=== PATIENT | female | born 1960 | race Caucasian/White ===

== ENCOUNTER → 2018-03-19 | Outpatient (CLI) | payer BC ==
[~2018-03-19] MED LIST: BUPR150ER; BUPR150ER PO; ESOM20; FLUT.05NI; HYDCHL25 PO; LEVSOD75 PO; Prinivil10 MG PO; QVAR7.3 G1 IH
== END | disposition home or self-care (01) ==
LOC: LAB SHORT 11:23 → LAB 11:23
PROVIDERS: Nurse Practitioner
DX: Z01.419 Encounter for gynecological examination (general) (routine) without abnormal findings (principal)
CPT/HCPCS: G0145

== ENCOUNTER → 2018-05-17 | Outpatient (CLI) | payer BC | LOC: EDSTATUS 10:39 → PLD 12:59 → LAB SHORT 12:59 | DX: N95.0 Postmenopausal bleeding (principal) | CPT/HCPCS: 88305 ==

== ENCOUNTER 2018-07-05 11:55 | Day surgery (SDC) | payer BC ==
[~2018-07-05] VITALS: Ht 160 cm; Wt 93.3 kg
[2018-07-05] MEDS ORDERED: IBUP400 (12:29)
[2018-07-05] MEDS ORDERED: Aspir 8181 MG (12:29)
== END 2018-07-05 14:20 | disposition home or self-care (01) ==
LOC: ORSCSDS 11:55
PROVIDERS: Obstetrics & Gynecology
PROC: 0UDB8ZX Extraction of Endometrium, Via Natural or Artificial Opening Endoscopic, Diagnostic (ICD-10-PCS; principal; 2018-07-05 13:00)
DX: N84.0 Polyp of corpus uteri (principal); N95.0 Postmenopausal bleeding; E03.9 Hypothyroidism, unspecified; I10 Essential (primary) hypertension; G47.33 Obstructive sleep apnea (adult) (pediatric); F32.9 Major depressive disorder, single episode, unspecified; J45.909 Unspecified asthma, uncomplicated; K21.9 Gastro-esophageal reflux disease without esophagitis; Z79.82 Long term (current) use of aspirin; Z79.899 Other long term (current) drug therapy
CPT/HCPCS: 88305; J1100; J2250; J2405; J3010; J7120

== ENCOUNTER 2023-04-25 09:38 | Day surgery (SDC) | payer OTHER ==
[~2023-04-25] VITALS: Ht 157.5 cm; Wt 106.3 kg
[2023-04-25] VITALS (11 sets, daily range): BP systolic 94–120; BP diastolic 58–70
[~2023-04-25 09:38] MED LIST changes: +Aspir 8181 MG PO; +CALCIUM PO; +Hair, Skin & N1 EACH PO; +IBUP400; +TYLENOL325 MG; +[UNRECOGNIZED DRUG - OTHER] PO
--- NOTE | 2023-04-25 11:36 | NUR ---
Ambulatory in Day Surgery Surgical site prepped with 2% Chlorhexidine cloth wipe. Sathish Paws warming gown applied. History, Chart, Medications and Allergies reviewed before start of procedure.Lungs clear T/O to Auscultation. Patient confirms NPO status and agrees with scheduled surgery. Pre-Op teaching done. Pt verbalizes understanding. Patient States Post-Procedure ride home has been arranged. Patient reports completing Chlorhexadine shower X2 prior to admission to hospital.
--- NOTE | 2023-04-25 15:11 | NUR ---
PT ARRIVED TO THE ROOM AT 1500. PAIN MANAGED AT TIME OF ARRIVAL. PT HAD SPINAL ANESTHESIA AND REPORTS PAIN IS MANAGED. MIMINAL MOVEMENT OF BLE. DRESSING C/D/I TO THE R KNEE. FAMILY AT BEDSIDE FOR SUPPORT.
--- NOTE | 2023-04-25 18:29 | NUR ---
DECREASED RENAL FUNCTION REVIEWED RENAL FUNCTION SINCE TORADOL WAS ORDERED FOR PATIENT. LAST RENAL FUCTION AVALIABLE IN [facility] WAS IN 2019, CREATININE WAS 1.02 AND LAST GFT WAS 56. PT REPORTS SHE HAS HAD LABS DRAWN SINCE IN 2021, RESULTS NOT AVALIABLE FOR THIS RN TO SEE AND PT UNSURE OF RESULTS. PT REPORTS HISTORY OF EARLY RENAL FUNCTION ISSUES AND STATES SHE HAS BEEN TOLD BY HER PCP TO AVOID NSAIDS. JEFF FUENTES NOTIFIED AND DECISION MADE TO DC TORADOL. 1800 TORADOL DOSE WAS HELD AND IT WAS DC'D FROM THE [facility]. PT PROVIDED WITH EDUCATION.
--- NOTE | 2023-04-25 19:24 | NUR ---
SHIFT SUMMARY PT IS POD#0 FROM [address] TKA WITH DR. LOZA. PAIN MANAGED WITH TYLENOL. PT AMBULATED X1. PT HAS VOIDED. SHE IS TOLERATING PO. REPORT GIVEN TO GALE BLAS.
[2023-04-26 00:12] VITALS: BP 95/60
[2023-04-26 03:54] VITALS: BP 125/64
[2023-04-26 04:17] LABS: BASOPHILS ABSOLUTE AUTO 0.02 K/mm3 (0.00-0.23); BASOPHILS PERCENT AUTO 0 % (0-2); EOSINOPHILS ABSOLUTE AUTO 0.02 K/mm3 (0.00-0.68); EOSINOPHILS PERCENT AUTO 0 % (0-6); Hematocrit 36.6 % (33.0-51.0); Hemoglobin 11.9 g/dL (11.5-16.0); IMMATURE GRAN ABSOLUTE AUTO 0.03 K/mm3 (0.00-0.10); IMMATURE GRAN PERCENT AUTO 0 % (0-1); LYMPHOCYTES ABSOLUTE AUTO 0.82 K/mm3 (0.84-5.20); LYMPHOCYTES PERCENT AUTO 9 % (21-46); MONOCYTES ABSOLUTE AUTO 0.55 K/mm3 (0.16-1.47); MONOCYTES PERCENT AUTO 6 % (4-13); Mean Corpuscular HGB 28.8 pg (26.0-34.0); Mean Corpuscular HGB Conc 32.5 g/dL (31.5-36.5); Mean Corpuscular Volume 89 fL (80-100); NEUTROPHILS ABSOLUTE AUTO 8.05 K/mm3 (1.96-9.15); NEUTROPHILS PERCENT AUTO 85 % (41-73); Platelet Count 240 K/mm3 (150-400); RDW Coefficient Variation 14.7 % (11.7-14.2); RDW Standard Deviation 47.2 fL (35.1-46.3); Red Blood Cell Count 4.13 M/mm3 (3.80-5.20); White Blood Cell Count 9.49 K/mm3 (4.00-11.30)
[2023-04-26 04:48] LABS: Bun/Creatinine Ratio 22.9 (12.0-20.0); Calcium, Blood 8.8 mg/dL (8.5-10.1); Creatinine, Blood 0.96 mg/dL (0.40-1.00); Potassium, Blood 4.1 mmol/L (3.5-5.5)
--- NOTE | 2023-04-26 04:57 | NUR ---
SHIFT SUMMARY POD1 RTKA. SENSATION AND CIRCULATION REMAINS INTACT IN RLE. DRESSING IS C/D/I. VSS, HR BRADYCARDIC BUT PT REMAINS ASYMPTOMATIC. TOLLERATING PO INTAKE W/O N/V, AMBUALATING WITH SBA W/ FWW GT BELT, VOIDING W/O DIFFICULTY. PT SLEPT WITH HOME CPAP. MEDICATED FOR PAIN WITH SCHEDULED AND PRN. NO ACUTE EVENTS NOTED T/O THE NIGHT. PLAN FOR PT TO WORK WITH PT AND D/C HOME TODAY. THE PATIENT IS CURRENTLY RESTING, IN NO DISTRESS, CALL LIGHT IN REACH
[2023-04-26 08:02] VITALS: BP 114/74
[2023-04-26] MEDS ORDERED: Percocet 5-3251 EACH PO (09:12)
[2023-04-26] MEDS ORDERED: ELIQUIS2.5 MG PO (09:13)
--- NOTE | 2023-04-26 10:10 | NUR ---
DISCHARGE PT HAS CLEARED THERAPY. PAIN WELL CONTROLLED PER [facility]. AQUACEL OVER INCISION, C/D/I. EATING, DRINKING, & VOIDING WELL. DISCUSSED DISCHARGE INSTRUCTIONS WITH PATIENT. DRESSINGS, DISCHARGE INSTRUCTIONS, RX'S & POLAR PACK SENT WITH PATIENT. ESCORTED OUT VIA W/C.
== END 2023-04-26 10:15 | disposition home or self-care (01) ==
LOC: ORSCMMR 09:38 → ORD 10:00 → ORSCMMR 11:00 → ORD 11:00 → SURS 15:11 → ORSCMMR 04-26 10:15
PROVIDERS: Orthopaedic Surgery
PROC: 0SRC0JA Replacement of Right Knee Joint with Synthetic Substitute, Uncemented, Open Approach (ICD-10-PCS; principal; 2023-04-25 11:00)
DX: M17.11 Unilateral primary osteoarthritis, right knee (principal); I10 Essential (primary) hypertension; E03.9 Hypothyroidism, unspecified; E66.01 Morbid (severe) obesity due to excess calories; Z68.41 Body mass index [BMI] 40.0-44.9, adult; J45.909 Unspecified asthma, uncomplicated; G47.33 Obstructive sleep apnea (adult) (pediatric); Z79.899 Other long term (current) drug therapy; Z79.82 Long term (current) use of aspirin
CPT/HCPCS: 36415; 73560-RT; 80048; 85025; 97110; 97116; 97161; 97530; A9270; C1776; J0171; J0690; J0735; J1100; J1170; J1885; J2250; J2370; J2405; J2704; J2765; J2795; J3010; J7120